=== PATIENT | male | born 1990 | race Caucasian/White ===

== ENCOUNTER 2018-11-11 20:55 | Emergency (ER) | payer OTHER ==
[2018-11-11 21:06] VITALS: BP 142/86; PULSE 105; RESP 16; TEMP 98.1; O2SAT 99
[2018-11-11] MEDS ORDERED: Tdap Vaccine 0.5 ml Vial (10-64 yrs) IM ONE (21:26)
--- NOTE | 2018-11-11 21:27 | ED PDOC ---
Upper Extremity Pain/Injury Time Seen by Provider: 11/11/18 21:20 Chief Complaint (Nursing): Finger,Hand,&Wrist Chief Complaint (Provider): Finger,Hand,&Wrist History Per: Patient History/Exam Limitations: no limitations Onset/Duration Of Symptoms: Hrs ([employer]) Current Symptoms Are (Timing): Still Present Additional Complaint(s): 28 year old male presents to the ED with a left hand laceration onset just [employer]. Patient sustained laceration to left hand when washing a porcelain dish which broke. Tetanus not up to date. PMD: none provided Past Medical History Reviewed: Historical Data, Nursing Documentation, Vital Signs Vital Signs: Last Vital Signs Temp 98.1 F 11/11/18 21:03 Pulse 105 H 11/11/18 21:03 Resp 16 11/11/18 21:03 BP 142/86 11/11/18 21:03 Pulse Ox 99 11/11/18 21:03 - Family History Family History: States: Unknown Family Hx - Home Medications Home Medications: Ambulatory Orders Medication Instructions Recorded Cephalexin [Keflex] 500 mg PO TID #21 capsule 11/11/18 - Allergies Allergies/Adverse Reactions: Allergies Allergy/AdvReac Type Severity Reaction Status Date / Time No Known Allergies Allergy Verified 11/11/18 21:25 Review of Systems ROS Statement: Except As Marked, All Systems Reviewed And Found Negative Skin: Positive for: Other (finger laceration) Physical Exam - Reviewed Nursing Documentation Reviewed: Yes Vital Signs Reviewed: Yes - Physical Exam Appears: Positive for: No Acute Distress Eye Exam: Positive for: Normal appearance Extremity: Positive for: Capillary Refill (less than 2 seconds), Other (2.5 cm vertical laceration to the dorsal hand over the third MCP with tendon visible, no obvious laceration of tendon. Flexion and extension intact, sensation intact.) Neurological/Psych: Positive for: Awake, Alert, Oriented - ECG O2 Sat by Pulse Oximetry: 99 (RA) Pulse Ox Interpretation: Normal Medical Decision Making Medical Decision Making: Time: 2125 --XR left hand --Tetanus --X-ray demonstrates no foreign body or fracture Procedure note: --Multiple 5.0 Nylon used to close wound, bulky dry sterile used, and hand immobilized with orthoglass dosral hand splint. Pt. tolerated well. will start on abx. given exposed tendon. Wound care instructions reviewedd with pt.. Scribe Attestation: Documented by Marysol Malloy acting as a scribe for Lisbeth Mckeon PA-C. Provider Scribe Attestation: All medical record entries made by the Scribe were at my direction and personally dictated by me. I have reviewed the chart and agree that the record accurately reflects my personal performance of the history, physical exam, medical decision making, and the department course for this patient. I have also personally directed, reviewed, and agree with the discharge instructions and disposition. Procedures - Splinting Hand-Made Type: orthoglass Splint: dorsal wrist splint with 2nd-4th digits immobilized in slight flexion - Laceration/Wound Repair Left Wound Length (cm): 2.5 Wound's Depth, Shape: linear (vertical) Irrigated w/ Saline (ccs): 10 Betadine Prep?: Yes Anesthesia: 1% Lidocaine Volume Anesthetic (ccs): 2 Suture Size/Type: 5:0, proline Layer Closure?: No Wound Complexity: Simple Disposition - Clinical Impression Clinical Impression: Hand laceration Counseled Patient/Family Regarding: Studies Performed, Diagnosis, Need For Followup, Rx Given - Disposition Referrals: Roberto Zamora MD [Staff Provider] - Disposition: Routine/Home Disposition Time: 22:45 Condition: STABLE Additional Instructions: keep dry and covered with splint on x 2 days. then clean wound gently and apply neosporin daily. use splint during day when active. return to ED if any signs of infection...redness, swelling, pus. Prescriptions: Cephalexin [Keflex] 500 mg PO TID #21 capsule Instructions: Laceration Repair With Stitches (DC) Forms: [employer] (Hebrew), [employer] ED School/Work Excuse
--- NOTE | 2018-11-12 09:19 | RAD ---
PROCEDURE: Left Hand Radiographs. HISTORY: r/o fb COMPARISON: None. FINDINGS: BONES: Normal. No fracture. JOINTS: Normal. No osteoarthritic changes. SOFT TISSUES: Normal. No radiopaque foreign bodies are identified OTHER FINDINGS: None. IMPRESSION: No evidence displaced fracture nor dislocation. No obvious cortical destructive changes. No radiopaque foreign bodies identified
== END 2018-11-11 23:15 | disposition home or self-care (01) ==
LOC: H.ER 20:55
DX: S61.412A Laceration without foreign body of left hand, initial encounter (principal); W25.XXXA Contact with sharp glass, initial encounter; Y92.89 Other specified places as the place of occurrence of the external cause